=== PATIENT | female | born 1965 | race Two or more races ===

== ENCOUNTER 2017-10-03 07:37 | Emergency (ER) | payer OTHER ==
[~2017-10-03] VITALS: Ht 152.4 cm; Wt 47.7 kg
[~2017-10-03 07:37] MED LIST: CEPH-264 PO; HYDR-2758 PO
[2017-10-03 07:43] VITALS: BP 170/77
[2017-10-03] MEDS ORDERED: WARF-31 PO (07:58)
--- NOTE | 2017-10-03 08:35 | RAD ---
Lumbar spine, 3 views, 10/03/2017: HISTORY: Fall, back pain No fracture or dislocation is identified. The intervertebral disc spaces are well-maintained. The paraspinous soft tissues are unremarkable. IMPRESSION: No acute lumbar spine abnormality is detected. Pelvis with left hip, 3 views, 10/03/2017: No fracture or dislocation is identified. The periarticular soft tissues are unremarkable. IMPRESSION: No acute abnormality is detected. Electronically signed by: Ananth Smith MD (10/03/2017 8:31 AM) [facility] [place]
--- NOTE | 2017-10-03 08:57 | PHYS DOC ---
Past Medical History Past Medical History: Other Additional Past Medical Histor: leaking heart valve Past Surgical History: Pacemaker, Other Additional Past Surgical Histo: valve replacement Alcohol Use: None Drug Use: None Adult General Chief Complaint Chief Complaint: MECHANICAL FALL [facility] HPI Patient is a 52 year old female who presents with fall. The patient slipped and had a mechanical fall. She fell backwards landing mostly on the left hip and lower part of her back. The incident happened just prior to arrival. She complains of pain over the lumbar area and the left hip. She has no knee or leg pain. She did not strike her head or lose consciousness. She does not complain of vision problems, nausea, cervical neck pain. She is otherwise healthy although she does have pacemaker placed. No additional recent illness or other complaints. She did not have syncope. She did not have chest pain, palpitations , shortness of breath. Review of Systems Review of Systems Constitutional: Denies fever or chills Eyes: Denies change in visual acuity HENT: Denies nasal congestion or sore throat Respiratory: Denies cough or shortness of breath Cardiovascular: No additional information not addressed in HPI GI: Denies abdominal pain, nausea, vomiting Musculoskeletal: Denies back pain Integument: Denies rash or skin lesions Neurologic: Denies headache, focal weakness or sensory change All other systems were reviewed and found to be within normal limits, except as documented in this note. Allergies Allergies Allergies Coded Allergies Type Severity Reaction Last Updated Verified No Known Drug Allergies 10/03/17 No Physical Exam Physical Exam Constitutional: Well developed, well nourished, no acute distress HENT: Normocephalic, atraumatic, bilateral external ears normal, oropharynx moist Eyes: PERRLA, EOMI, conjunctiva normal Neck: Normal range of motion, no tenderness Cardiovascular:Heart rate regular rhythm, no murmur Lungs & Thorax: Bilateral breath sounds clear to auscultation Abdomen: Bowel sounds normal, soft, no tenderness Skin: Warm, dry, no erythema Back: mild TTP over lumbar area Extremities: + full ROM of left hip. + mild TTP over greater trochanter. 2+ distal pulses and sensation to light touch intact over all dermatomes. Neurologic: Alert and oriented X 3, normal motor function Psychologic: Affect normal Current Patient Data Vital Signs Vital Signs Date Time Temp Pulse Resp B/P (MAP) Pulse Ox O2 Delivery O2 Flow Rate FiO2 10/03/17 07:43 98.3 67 20 170/77 (108) 97 Room Air 98.3 EKG EKG [] Radiology/Procedures Radiology/Procedures Xray of lumbar spine and right hip: normal Course & Med Decision Making Course & Med Decision Making Pertinent Labs and Imaging studies reviewed. (See chart for details) Patient is evaluated in the emergency Department following a mechanical fall. There were no acute findings on her physical exam or plain film imaging. Plan is for discharge home. She is placed on ibuprofen as well as some Ultram for more severe pain. She is encouraged follow-up with her primary care doctor. Opiate precautions are discussed and all of her questions are answered prior to discharge. The patient is primarily Yi speaking. The [employer] phone was used to communicate with her during this visit. Dragon Disclaimer Dragon Disclaimer This electronic medical record was generated, in whole or in part, using a voice recognition dictation system. JOSE PETERSON DO Oct 03, 2017 08:57
[2017-10-03] MEDS ORDERED: TRAM50TA PO (09:01)
== END 2017-10-03 09:38 | disposition home or self-care (01) ==
LOC: ER 07:37 → MERGE 07:37 → ER 09:38
DX: M54.5 Low back pain (principal); M25.552 Pain in left hip; Z95.0 Presence of cardiac pacemaker; W01.0XXA Fall on same level from slipping, tripping and stumbling without subsequent striking against object, initial encounter; Y93.89 Activity, other specified; Y92.89 Other specified places as the place of occurrence of the external cause; Y99.8 Other external cause status
CPT/HCPCS: 72100; 73502; 99284